=== PATIENT | male | born 1945 | race Caucasian/White ===

== ENCOUNTER 2023-03-14 05:29 | Emergency (ER) | payer MEDICARE ==
--- NOTE | 2023-03-14 05:48 | ERPHSYRPT ---
- History of Present Illness Time Seen by Provider: 03/14/23 05:48 Source: patient Exam Limitations: no limitations Physician History: 77-year-old male presents emergency room from the shelter with a 1 day history of worsening shortness of breath. Patient reports he developed a cough with minimal sputum production yesterday and felt very short of breath. He wears 3 L of oxygen via nasal cannula at baseline due to COPD, but required up to 5 L nasal cannula yesterday to maintain oxygen saturations. Patient denies any fevers but he is very diaphoretic. He does not feel like he is wheezing and his breathing treatments have not been helping, he just feels it is very difficult to get his breath. Patient has a history of a blood clot in his right leg, he is unsure when this was, but he says he is on Eliquis 5 mg twice a day. Patient also has bilateral lower extremity cellulitis that is bandaged to the level of the knee bilaterally has required several debridements. Patient is very sedentary. He denies any unilateral leg swelling at this time. Patient does live in a shelter so is exposed to sick contacts regularly. He had not been sick recently. Patient also reported chest pain underneath his right breast without radiation. Pain is described as a pressure. He has a history of hypertension, hyperlipidemia and diabetes. He denies any prior history of CAD. Timing/Duration: yesterday Cough Quality/Degree: moderate, productive cough, sputum Possible Cause: occasional episodes Modifying Factors: Improves With: oxygen. Worsens With: activity, coughing, exertion Associated Symptoms: chills, chest pain/soreness, cough, shortness of breath, No fever, No dizziness, No earache, No headache, No muscle aches, No nasal congestion, No sinus infection, No sore throat, No wheezing Allergies/Adverse Reactions: Beta-Blockers (Beta-Adrenergic Bloc Allergy (Unknown, Verified 03/14/23 05:53) pollen extracts Allergy (Unknown, Verified 03/14/23 05:53) Home Medications: Acetaminophen 325 mg [Tylenol 325 mg] 650 mg PO Q4H PRN PRN 03/14/23 [His tory] Apixaban [Eliquis] 5 mg PO BID 03/14/23 [History] Atorvastatin Calcium 20 mg PO HS 03/14/23 [History] Bisacodyl 10 mg [Dulcolax 10 MG SUPP] 10 mg RC DAILY 03/14/23 [History] Cetirizine HCl [Zyrtec] 10 mg PO DAILY 03/14/23 [History] Ferrous Sulfate 325 mg [Feosol 325 mg] 325 mg PO BID 03/14/23 [History] Fluticasone Propion/Salmeterol [Fluticasone-Salmeterol 250-50] 2 puff IH BIDRT 03/14/23 [History] Furosemide 40 mg [Lasix 40 MG] 40 mg PO DAILY 03/14/23 [History] Hydrocodone/Acetaminophen [Hydrocodone-Acetamin 10-325 mg] 1 each PO Q6HPRN PRN 03/14/23 [History] Hydrophilic Ointment [Dermafix] 113 gm TP BID 03/14/23 [History] Insulin Aspart [Novolog] 100 unit SQ ACHS PRN 03/14/23 [History] Ipratropium [place] 0.2 mg IN BID 03/14/23 [History] Ipratropium/Albuterol Sulfate [Iprat-Albut 0.5-3(2.5) mg/3 ml] 3 ml IH Q6HPRN PRN 03/14/23 [History] Ipratropium/Albuterol Sulfate [Iprat-Albut 0.5-3(2.5) mg/3 ml] 3 ml IH Q6HPRN PRN 03/14/23 [History] Levothyroxine Sodium 100 Mcg [Synthroid 100 Mcg] 200 mcg PO DAILY 03/14/23 [History] Magnesium Hydroxide 30 ml [Milk of Magnesia 30 ml] 30 ml PO DAILY PRN 03/14/23 [History] Nitroglycerin 0.4 mg Tablet [Nitrostat 0.4 MG Tablet] 0.4 mg SL UD PRN 03/14/23 [History] Nystatin Powder 15 gm [Nystop Powder 15 gm] 15 gm TP TID 03/14/23 [History] PANTOPRAZOLE 40 mg Tablet [Protonix 40MG Tablet] 40 mg PO BID 03/14/23 [History] Polyethylene Glycol 3350 [Miralax] 17 gm PO DAILY PRN 03/14/23 [History] Prednisone 20 mg [Deltasone 20 mg] 20 mg PO DAILY 03/14/23 [History] Sennosides [Senna] 2 tablet PO HS 03/14/23 [History] Sodium Chloride [Saline Nasal [place]] 45 ml NS Q8H PRN PRN 03/14/23 [History] Sodium Hypochlorite [[place]akin's] 473 ml MC DAILY 03/14/23 [History] Sodium Phosphate,Dent-Dibasic [Fleet Enema] 133 ml RC DAILY PRN 03/14/23 [History] Spironolactone 25 mg [Aldactone 25 MG] 25 mg PO DAILY 03/14/23 [History] - Review of Systems Constitutional: Chills, Fatigue, No Fever Eyes: No Symptoms Ears, Nose, & Throat: No Symptoms Respiratory: Cough, Dyspnea, No Wheezing Cardiac: Chest Pain, No Edema Abdominal/Gastrointestinal: No Symptoms Genitourinary Symptoms: No Symptoms Musculoskeletal: No Symptoms Skin: Cellulitis (b/l LE) Neurological: No Symptoms Psychological: No Symptoms Endocrine: No Symptoms Hematologic/Lymphatic: Blood Clots (right leg) - Nursing Vital Signs Nursing Vital Signs: Initial Vital Signs Temperature 96.7 F 03/14/23 05:34 Pulse Rate 118 H 03/14/23 05:34 Respiratory Rate 22 03/14/23 05:34 Blood Pressure 102/66 03/14/23 05:34 O2 Sat by Pulse Oximetry 99 03/14/23 05:34 Pain Scale Pain Intensity 0 - Physical Exam General Appearance: moderate distress, obese Eye Exam: eyes nml inspection Ears, Nose, Throat Exam: normal ENT inspection, TMs normal, pharynx normal, moist mucous membranes Neck Exam: normal inspection, non-tender, supple, full range of motion Respiratory Exam: airway intact, diminished breath sounds, prolonged expirations, rhonchi, other (labored breathing, increased O2 requirment from 3 to 5L NC), No accessory muscle use Cardiovascular Exam: tachycardia, irregular, capillary refill <2 sec, No edema Gastrointestinal/Abdomen Exam: soft, normal bowel sounds, No tenderness, No distention, No guarding, No rebound Extremity Exam: tenderness, other (bandages from toes to just below knee), No swelling Neurologic Exam: alert, oriented x 3, cooperative Skin Exam: warm, diaphoresis, pale, No rash SpO2 Interpretation: hypoxic, ABG ordered SpO2: 99 O2 Delivery: Nasal Cannula (5L) - Course Nursing assessment & vital signs reviewed: Yes EKG Interpreted by Me: RATE (133), A-fib, NORMAL AXIS, prolonged QT interval (483), NORMAL ST-T - CT Exams Chest CT Interpretation: Tele-radiologist Report, No PE, Pneumonia Ordered Tests: Medication Summary Discontinued Medications Generic Name Dose Route Start Last Admin Trade Name Freq PRN Reason Stop Dose Admin Albuterol/Ipratropium 3 ml 03/14/23 06:21 03/14/23 06:33 Ipratropium/Albuterol Sulfate 3 Ml Ampul.Neb IH 03/14/23 06:22 3 ml STAT ONE Administration Albuterol/Ipratropium Confirm 03/14/23 06:32 Ipratropium/Albuterol Sulfate 3 Ml Ampul.Neb Administered 03/14/23 06:33 Dose 3 ml IH .STK-MED ONE Albuterol/Ipratropium 3 ml 03/14/23 15:32 03/14/23 15:32 Ipratropium/Albuterol Sulfate 3 Ml Ampul.Neb IH 03/14/23 15:33 3 ml STAT ONE Administration Albuterol/Ipratropium Confirm 03/14/23 15:34 Ipratropium/Albuterol Sulfate 3 Ml Ampul.Neb Administered 03/14/23 15:35 Dose 3 ml IH .STK-MED ONE Aspirin 324 mg 03/14/23 06:24 03/14/23 06:30 Aspirin 81 Mg Tab.Chew PO 03/14/23 06:25 324 mg STAT ONE Administration Methylprednisolone Sodium 0 mg 03/14/23 06:21 03/14/23 07:04 Succinate 125 mg/ Sterile IV 03/14/23 06:22 125 mg Water 2 ml STAT ONE Administration Diltiazem HCl 10 mg 03/14/23 06:40 Diltiazem Hcl Iv 5 Mg/Ml Vial IV 03/14/23 06:41 STAT ONE Diltiazem HCl Confirm 03/14/23 06:58 Diltiazem Hcl Iv 5 Mg/Ml Vial Administered 03/14/23 06:59 Dose 50 mg IV .STK-MED ONE Sodium Chloride 1,000 mls @ 999 mls/hr 03/14/23 06:21 03/14/23 08:25 Sodium Chloride 0.9% 1000 Ml IV 03/14/23 07:21 Infused .Q1H1M STA Infusion Azithromycin 500 mg in 250 mls @ 250 mls/hr 03/14/23 06:21 03/14/23 10:08 Zithromax 500 Mg/ 250 Ml Nacl Premix IV 03/14/23 07:20 Infused STAT STA Infusion Ceftriaxone Sodium/Dextrose 1 g in 50 mls @ 100 mls/hr 03/14/23 06:21 03/14/23 08:04 Rocephin 1 Gm-D5w 50 Ml Bag IV 03/14/23 06:50 Infused STAT STA Infusion Azithromycin Confirm 03/14/23 06:53 Zithromax 500 Mg/ 250 Ml Nacl Premix Administered 03/14/23 06:54 Dose 500 mg in 250 mls @ ud IV .STK-MED ONE Sodium Chloride Confirm 03/14/23 06:53 Sodium Chloride 0.9% 1000 Ml Administered 03/14/23 06:54 Dose 1,000 mls @ ud .ROUTE .STK-MED ONE Ceftriaxone Sodium/Dextrose Confirm 03/14/23 06:53 Rocephin 1 Gm-D5w 50 Ml Bag Administered 03/14/23 06:54 Dose 1 g in 50 mls @ ud IV .STK-MED ONE Magnesium Sulfate/Dextrose 100 mls @ 100 mls/hr 03/14/23 09:00 03/14/23 09:59 Magnesium 1 Gm / 100 Ml D5w IV 03/14/23 10:59 Not Given Q1H TABATHA Magnesium Sulfate/Dextrose 100 mls @ 100 mls/hr 03/14/23 09:00 03/14/23 09:59 Magnesium 1 Gm / 100 Ml D5w IV 03/14/23 10:59 Not Given Q1H TABATHA Magnesium Sulfate/Water 2 gm in 50 mls @ 100 mls/hr 03/14/23 09:50 03/14/23 11:46 Magnesium Sulf 2 G/50 Ml Bag IV 03/15/23 10:19 Infused Q30MIN TABATHA Infusion Sodium Chloride Confirm 03/14/23 10:00 Sodium Chloride 0.9% 1000 Ml Administered 03/14/23 10:01 Dose 1,000 mls @ ud .ROUTE .STK-MED ONE Sodium Chloride 1,000 mls @ 999 mls/hr 03/14/23 10:01 03/14/23 11:56 Sodium Chloride 0.9% 1000 Ml IV 03/14/23 11:01 Infused .Q1H1M STA Infusion Vancomycin HCl 1 gm in 200 mls @ 125 mls/hr 03/14/23 14:05 Vancomycin 1 Gram/200 Ml Bag IV 03/14/23 15:40 STAT ONE Magnesium Sulfate/Water Confirm 03/14/23 09:49 Magnesium Sulf 2 G/50 Ml Bag Administered 03/14/23 09:50 Dose 2 gm in 50 mls @ ud IV .STK-MED ONE Magnesium Sulfate/Water Confirm 03/14/23 11:02 Magnesium Sulf 2 G/50 Ml Bag Administered 03/14/23 11:03 Dose 2 gm in 50 mls @ ud IV .STK-MED ONE Methylprednisolone Sodium Succinate Confirm 03/14/23 06:53 Methylprednis Sod Succ 125 Mg/2 Ml Vial Administered 03/14/23 06:54 Dose 125 mg .ROUTE .STK-MED ONE Nitroglycerin 0.4 mg 03/14/23 06:24 03/14/23 06:31 Nitroglycerin 0.4 Mg (Ed) 0.4 Mg Tab.Subl SL 03/14/23 06:25 Not Given STAT ONE Sterile Water Confirm 03/14/23 06:53 Water For Injection,Sterile 10 Ml Vial Administered 03/14/23 06:54 Dose 10 ml IJ .STK-MED ONE Lab/Rad Data: Laboratory Result Diagrams 03/14/23 07:12 03/14/23 07:12 Laboratory Results 03/14/23 03/14/23 03/14/23 Range/Units 15:11 13:57 10:37 WBC (4.0-10.5) x10^3/uL RBC (4.1-5.6) x10^6/uL Hgb (12.5-18.0) g/dL Hct (42-50) % MCV (78-100) fL MCH (26-32) pg MCHC (32-36) g/dL RDW (11.5-14.0) % Plt Count (150-450) x10^3/uL MPV (7.5-11.0) fL Gran % (36.0-66.0) % Immature Gran % (Auto) (0.00-0.4) % Nucleat RBC Rel Count (0.00-0.1) % Eos # (Auto) (0-0.5) x10^3/uL Immature Gran # (Auto) (0.00-0.03) x10^3u/L Absolute Lymphs (auto) (1.0-4.6) x10^3/uL Absolute Monos (auto) (0.0-1.3) x10^3/uL Absolute Nucleated RBC (0.00-0.01) x10^3u/L Lymphocytes % (24.0-44.0) % Monocytes % (0.0-12.0) % Eosinophils % (0.00-5.0) % Basophils % (0.0-0.4) % Absolute Granulocytes (1.4-6.9) x10^3/uL Basophils # (0-0.4) x10^3/uL PT (9.4-12.5) SECONDS INR (0.8-3.0) APTT (25.1-36.5) SECONDS pO2/FiO2 Ratio % VBG pH (7.32-7.42) VBG pCO2 at Pat Temp (42-55) mm/Hg VBG pO2 at Pat Temp (25-40) mm/Hg VBG HCO3 (22-28) meq/L VBG O2 Sat ([place]) (95-100) VBG Base Excess (-2.0-2.0) VBG Hemoglobin VBG Carboxyhemoglobin (0.0-6.9) % T HGB POC Potassium (3.5-5.1) Sodium (137-145) mmol/L Potassium (3.5-5.1) mmol/L Chloride (98-107) mmol/L Carbon Dioxide (22-30) mmol/L Anion Gap (5-15) MEQ/L BUN (9-20) mg/dL Creatinine (0.66-1.25) mg/dL Estimated GFR ML/MIN Glucose (74-106) mg/dL Lactic Acid (0.4-2.0) Calcium (8.4-10.2) mg/dL Magnesium (1.6-2.3) mg/dL Total Bilirubin (0.2-1.3) mg/dL Direct Bilirubin (0.0-0.4) mg/dL AST (17-59) U/L ALT (0-50) U/L Alkaline Phosphatase (38-126) U/L Troponin I < 0.012 < 0.012 (0.000-0.034) ng/mL NT-Pro-B Natriuret Pep (<300) pg/mL Serum Total Protein (6.3-8.2) g/dL Albumin (3.5-5.0) g/dL Procalcitonin (0.030-0.080) ng/mL TSH 3rd Generation (0.47-4.68) mIU/L Urine Color Dark Yellow (Yellow) Urine Appearance Clear (Clear) Urine pH 5.0 (4.6-8.0) Ur Specific [place] Mark >=1.030 A (1.005-1.030) Urine Protein Trace A (Negative) Urine Glucose (UA) Negative (Negative) mg/dL Urine Ketones Trace A (Negative) Urine Blood Negative (Negative) Urine Nitrite Negative (Negative) Urine Bilirubin Small A (Negative) Urine Urobilinogen 2.0 A (0.2) mg/dL Ur Leukocyte Esterase Negative (Negative) Urine Microscopic RBC 0-2 (0-5) /HPF Urine Microscopic WBC 0-2 (0-5) /HPF Ur Epithelial Cells None Seen (None Seen) /HPF Urine Bacteria None Seen (None Seen) /HPF Urine Culture Reflexed NO (NO) Nasal Screen MRSA (PCR) Influenza Type A Ag (NEGATIVE) Influenza Type B Ag (NEGATIVE) RSV (PCR) (NEGATIVE) SARS-CoV-2 (PCR) (NEGATIVE) Slides for Path Review 03/14/23 03/14/23 03/14/23 Range/Units 09:30 09:16 09:01 WBC (4.0-10.5) x10^3/uL RBC (4.1-5.6) x10^6/uL Hgb (12.5-18.0) g/dL Hct (42-50) % MCV (78-100) fL MCH (26-32) pg MCHC (32-36) g/dL RDW (11.5-14.0) % Plt Count (150-450) x10^3/uL MPV (7.5-11.0) fL Gran % (36.0-66.0) % Immature Gran % (Auto) (0.00-0.4) % Nucleat RBC Rel Count (0.00-0.1) % Eos # (Auto) (0-0.5) x10^3/uL Immature Gran # (Auto) (0.00-0.03) x10^3u/L Absolute Lymphs (auto) (1.0-4.6) x10^3/uL Absolute Monos (auto) (0.0-1.3) x10^3/uL Absolute Nucleated RBC (0.00-0.01) x10^3u/L Lymphocytes % (24.0-44.0) % Monocytes % (0.0-12.0) % Eosinophils % (0.00-5.0) % Basophils % (0.0-0.4) % Absolute Granulocytes (1.4-6.9) x10^3/uL Basophils # (0-0.4) x10^3/uL PT (9.4-12.5) SECONDS INR (0.8-3.0) APTT (25.1-36.5) SECONDS pO2/FiO2 Ratio % VBG pH (7.32-7.42) VBG pCO2 at Pat Temp (42-55) mm/Hg VBG pO2 at Pat Temp (25-40) mm/Hg VBG HCO3 (22-28) meq/L VBG O2 Sat ([place]) (95-100) VBG Base Excess (-2.0-2.0) VBG Hemoglobin VBG Carboxyhemoglobin (0.0-6.9) % T HGB POC Potassium (3.5-5.1) Sodium (137-145) mmol/L Potassium (3.5-5.1) mmol/L Chloride (98-107) mmol/L Carbon Dioxide (22-30) mmol/L Anion Gap (5-15) MEQ/L BUN (9-20) mg/dL Creatinine (0.66-1.25) mg/dL Estimated GFR ML/MIN Glucose (74-106) mg/dL Lactic Acid 1.6 (0.4-2.0) Calcium (8.4-10.2) mg/dL Magnesium (1.6-2.3) mg/dL Total Bilirubin (0.2-1.3) mg/dL Direct Bilirubin 1.9 H (0.0-0.4) mg/dL AST (17-59) U/L ALT (0-50) U/L Alkaline Phosphatase (38-126) U/L Troponin I (0.000-0.034) ng/mL NT-Pro-B Natriuret Pep (<300) pg/mL Serum Total Protein (6.3-8.2) g/dL Albumin (3.5-5.0) g/dL Procalcitonin (0.030-0.080) ng/mL TSH 3rd Generation (0.47-4.68) mIU/L Urine Color (Yellow) Urine Appearance (Clear) Urine pH (4.6-8.0) Ur Specific [place] Mark (1.005-1.030) Urine Protein (Negative) Urine Glucose (UA) (Negative) mg/dL Urine Ketones (Negative) Urine Blood (Negative) Urine Nitrite (Negative) Urine Bilirubin (Negative) Urine Urobilinogen (0.2) mg/dL Ur Leukocyte Esterase (Negative) Urine Microscopic RBC (0-5) /HPF Urine Microscopic WBC (0-5) /HPF Ur Epithelial Cells (None Seen) /HPF Urine Bacteria (None Seen) /HPF Urine Culture Reflexed (NO) Nasal Screen MRSA (PCR) DETECTED Influenza Type A Ag (NEGATIVE) Influenza Type B Ag (NEGATIVE) RSV (PCR) (NEGATIVE) SARS-CoV-2 (PCR) (NEGATIVE) Slides for Path Review 03/14/23 03/14/23 03/14/23 Range/Units 07:18 07:14 07:12 WBC (4.0-10.5) x10^3/uL RBC (4.1-5.6) x10^6/uL Hgb (12.5-18.0) g/dL Hct (42-50) % MCV (78-100) fL MCH (26-32) pg MCHC (32-36) g/dL RDW (11.5-14.0) % Plt Count (150-450) x10^3/uL MPV (7.5-11.0) fL Gran % (36.0-66.0) % Immature Gran % (Auto) (0.00-0.4) % Nucleat RBC Rel Count (0.00-0.1) % Eos # (Auto) (0-0.5) x10^3/uL Immature Gran # (Auto) (0.00-0.03) x10^3u/L Absolute Lymphs (auto) (1.0-4.6) x10^3/uL Absolute Monos (auto) (0.0-1.3) x10^3/uL Absolute Nucleated RBC (0.00-0.01) x10^3u/L Lymphocytes % (24.0-44.0) % Monocytes % (0.0-12.0) % Eosinophils % (0.00-5.0) % Basophils % (0.0-0.4) % Absolute Granulocytes (1.4-6.9) x10^3/uL Basophils # (0-0.4) x10^3/uL PT (9.4-12.5) SECONDS INR (0.8-3.0) APTT (25.1-36.5) SECONDS pO2/FiO2 Ratio 40.0 % VBG pH 7.48 H (7.32-7.42) VBG pCO2 at Pat Temp 38 L (42-55) mm/Hg VBG pO2 at Pat Temp 47 H (25-40) mm/Hg VBG HCO3 28.3 H (22-28) meq/L VBG O2 Sat ([place]) 79.0 L (95-100) VBG Base Excess 4.5 H (-2.0-2.0) VBG Hemoglobin 10.4 VBG Carboxyhemoglobin 4.0 (0.0-6.9) % T HGB POC Potassium 5.5 H (3.5-5.1) Sodium (137-145) mmol/L Potassium (3.5-5.1) mmol/L Chloride (98-107) mmol/L Carbon Dioxide (22-30) mmol/L Anion Gap (5-15) MEQ/L BUN (9-20) mg/dL Creatinine (0.66-1.25) mg/dL Estimated GFR ML/MIN Glucose (74-106) mg/dL Lactic Acid 2.3 H (0.4-2.0) Calcium (8.4-10.2) mg/dL Magnesium (1.6-2.3) mg/dL Total Bilirubin (0.2-1.3) mg/dL Direct Bilirubin (0.0-0.4) mg/dL AST (17-59) U/L ALT (0-50) U/L Alkaline Phosphatase (38-126) U/L Troponin I (0.000-0.034) ng/mL NT-Pro-B Natriuret Pep (<300) pg/mL Serum Total Protein (6.3-8.2) g/dL Albumin (3.5-5.0) g/dL Procalcitonin 0.477 H (0.030-0.080) ng/mL TSH 3rd Generation (0.47-4.68) mIU/L Urine Color (Yellow) Urine Appearance (Clear) Urine pH (4.6-8.0) Ur Specific [place] Mark (1.005-1.030) Urine Protein (Negative) Urine Glucose (UA) (Negative) mg/dL Urine Ketones (Negative) Urine Blood (Negative) Urine Nitrite (Negative) Urine Bilirubin (Negative) Urine Urobilinogen (0.2) mg/dL Ur Leukocyte Esterase (Negative) Urine Microscopic RBC (0-5) /HPF Urine Microscopic WBC (0-5) /HPF Ur Epithelial Cells (None Seen) /HPF Urine Bacteria (None Seen) /HPF Urine Culture Reflexed (NO) Nasal Screen MRSA (PCR) Influenza Type A Ag (NEGATIVE) Influenza Type B Ag (NEGATIVE) RSV (PCR) (NEGATIVE) SARS-CoV-2 (PCR) (NEGATIVE) Slides for Path Review 03/14/23 03/14/23 03/14/23 Range/Units 07:12 07:12 07:12 WBC (4.0-10.5) x10^3/uL RBC (4.1-5.6) x10^6/uL Hgb (12.5-18.0) g/dL Hct (42-50) % MCV (78-100) fL MCH (26-32) pg MCHC (32-36) g/dL RDW (11.5-14.0) % Plt Count (150-450) x10^3/uL MPV (7.5-11.0) fL Gran % (36.0-66.0) % Immature Gran % (Auto) (0.00-0.4) % Nucleat RBC Rel Count (0.00-0.1) % Eos # (Auto) (0-0.5) x10^3/uL Immature Gran # (Auto) (0.00-0.03) x10^3u/L Absolute Lymphs (auto) (1.0-4.6) x10^3/uL Absolute Monos (auto) (0.0-1.3) x10^3/uL Absolute Nucleated RBC (0.00-0.01) x10^3u/L Lymphocytes % (24.0-44.0) % Monocytes % (0.0-12.0) % Eosinophils % (0.00-5.0) % Basophils % (0.0-0.4) % Absolute Granulocytes (1.4-6.9) x10^3/uL Basophils # (0-0.4) x10^3/uL PT 12.4 (9.4-12.5) SECONDS INR 1.15 (0.8-3.0) APTT 34.1 (25.1-36.5) SECONDS pO2/FiO2 Ratio % VBG pH (7.32-7.42) VBG pCO2 at Pat Temp (42-55) mm/Hg VBG pO2 at Pat Temp (25-40) mm/Hg VBG HCO3 (22-28) meq/L VBG O2 Sat ([place]) (95-100) VBG Base Excess (-2.0-2.0) VBG Hemoglobin VBG Carboxyhemoglobin (0.0-6.9) % T HGB POC Potassium (3.5-5.1) Sodium 135 L (137-145) mmol/L Potassium 3.6 (3.5-5.1) mmol/L Chloride 96 L (98-107) mmol/L Carbon Dioxide 27 (22-30) mmol/L Anion Gap 14.8 (5-15) MEQ/L BUN 26 H (9-20) mg/dL Creatinine 1.01 (0.66-1.25) mg/dL Estimated GFR > 60.0 ML/MIN Glucose 136 H (74-106) mg/dL Lactic Acid (0.4-2.0) Calcium 7.3 L (8.4-10.2) mg/dL Magnesium 0.7 L* (1.6-2.3) mg/dL Total Bilirubin 2.90 H (0.2-1.3) mg/dL Direct Bilirubin (0.0-0.4) mg/dL AST 62 H (17-59) U/L ALT 47 (0-50) U/L Alkaline Phosphatase 391 H (38-126) U/L Troponin I < 0.012 (0.000-0.034) ng/mL NT-Pro-B Natriuret Pep 1480 (<300) pg/mL Serum Total Protein 6.5 (6.3-8.2) g/dL Albumin 3.1 L (3.5-5.0) g/dL Procalcitonin (0.030-0.080) ng/mL TSH 3rd Generation 3.930 (0.47-4.68) mIU/L Urine Color (Yellow) Urine Appearance (Clear) Urine pH (4.6-8.0) Ur Specific [place] Mark (1.005-1.030) Urine Protein (Negative) Urine Glucose (UA) (Negative) mg/dL Urine Ketones (Negative) Urine Blood (Negative) Urine Nitrite (Negative) Urine Bilirubin (Negative) Urine Urobilinogen (0.2) mg/dL Ur Leukocyte Esterase (Negative) Urine Microscopic RBC (0-5) /HPF Urine Microscopic WBC (0-5) /HPF Ur Epithelial Cells (None Seen) /HPF Urine Bacteria (None Seen) /HPF Urine Culture Reflexed (NO) Nasal Screen MRSA (PCR) Influenza Type A Ag NEGATIVE (NEGATIVE) Influenza Type B Ag NEGATIVE (NEGATIVE) RSV (PCR) NEGATIVE (NEGATIVE) SARS-CoV-2 (PCR) NEGATIVE (NEGATIVE) Slides for Path Review 03/14/23 Range/Units 07:12 WBC 12.5 H (4.0-10.5) x10^3/uL RBC 4.10 (4.1-5.6) x10^6/uL Hgb 10.0 L (12.5-18.0) g/dL Hct 34.7 L (42-50) % MCV 84.6 (78-100) fL MCH 24.4 L (26-32) pg MCHC 28.8 L (32-36) g/dL RDW 23.3 H (11.5-14.0) % Plt Count 347 (150-450) x10^3/uL MPV 9.3 (7.5-11.0) fL Gran % 80.0 H (36.0-66.0) % Immature Gran % (Auto) 0.4 (0.00-0.4) % Nucleat RBC Rel Count 0.0 (0.00-0.1) % Eos # (Auto) 0.21 (0-0.5) x10^3/uL Immature Gran # (Auto) 0.05 H (0.00-0.03) x10^3u/L Absolute Lymphs (auto) 1.05 (1.0-4.6) x10^3/uL Absolute Monos (auto) 1.14 (0.0-1.3) x10^3/uL Absolute Nucleated RBC 0.00 (0.00-0.01) x10^3u/L Lymphocytes % 8.4 L (24.0-44.0) % Monocytes % 9.1 (0.0-12.0) % Eosinophils % 1.7 (0.00-5.0) % Basophils % 0.4 (0.0-0.4) % Absolute Granulocytes 9.97 H (1.4-6.9) x10^3/uL Basophils # 0.05 (0-0.4) x10^3/uL PT (9.4-12.5) SECONDS INR (0.8-3.0) APTT (25.1-36.5) SECONDS pO2/FiO2 Ratio % VBG pH (7.32-7.42) VBG pCO2 at Pat Temp (42-55) mm/Hg VBG pO2 at Pat Temp (25-40) mm/Hg VBG HCO3 (22-28) meq/L VBG O2 Sat ([place]) (95-100) VBG Base Excess (-2.0-2.0) VBG Hemoglobin VBG Carboxyhemoglobin (0.0-6.9) % T HGB POC Potassium (3.5-5.1) Sodium (137-145) mmol/L Potassium (3.5-5.1) mmol/L Chloride (98-107) mmol/L Carbon Dioxide (22-30) mmol/L Anion Gap (5-15) MEQ/L BUN (9-20) mg/dL Creatinine (0.66-1.25) mg/dL Estimated GFR ML/MIN Glucose (74-106) mg/dL Lactic Acid (0.4-2.0) Calcium (8.4-10.2) mg/dL Magnesium (1.6-2.3) mg/dL Total Bilirubin (0.2-1.3) mg/dL Direct Bilirubin (0.0-0.4) mg/dL AST (17-59) U/L ALT (0-50) U/L Alkaline Phosphatase (38-126) U/L Troponin I (0.000-0.034) ng/mL NT-Pro-B Natriuret Pep (<300) pg/mL Serum Total Protein (6.3-8.2) g/dL Albumin (3.5-5.0) g/dL Procalcitonin (0.030-0.080) ng/mL TSH 3rd Generation (0.47-4.68) mIU/L Urine Color (Yellow) Urine Appearance (Clear) Urine pH (4.6-8.0) Ur Specific Warriors Mark (1.005-1.030) Urine Protein (Negative) Urine Glucose (UA) (Negative) mg/dL Urine Ketones (Negative) Urine Blood (Negative) Urine Nitrite (Negative) Urine Bilirubin (Negative) Urine Urobilinogen (0.2) mg/dL Ur Leukocyte Esterase (Negative) Urine Microscopic RBC (0-5) /HPF Urine Microscopic WBC (0-5) /HPF Ur Epithelial Cells (None Seen) /HPF Urine Bacteria (None Seen) /HPF Urine Culture Reflexed (NO) Nasal Screen MRSA (PCR) Influenza Type A Ag (NEGATIVE) Influenza Type B Ag (NEGATIVE) RSV (PCR) (NEGATIVE) SARS-CoV-2 (PCR) (NEGATIVE) Slides for Path Review YES - Progress Progress: improved Air Movement: fair Progress Note: EKG showed atrial fibrillation with a heart rate of 133 bpm. Patient is anticoagulated with Eliquis 5 mg twice a day. Cardizem 10 mg IV push was ordered to help lower his heart rate, but prior to giving the medication his blood pressure decreased to a map ranging from 65-70 so decision was made to hol d medication at this time. His heart rate is largely been under 120 since his blood pressure dropped. Since he has received his IV fluids his map is now in the mid to upper 70s. He is saturating at 100% on the 5 L via nasal cannula at this time. CBC showed a white count of 12.5, hemoglobin of 10 Venous blood gas showed a pH of 7.48 Lactate was elevated at 2.3 Initial vial was hemolyzed so patient has to be redrawn for the remaining labs. 03/14/23 08:55 Received a call from lab that patient's magnesium was 0.7. We will give 4 g of magnesium sulfate at this time. Sodium 135, potassium 3.6, total bilirubin 2.9 we will obtain a direct, AST elevated at 62, ALT 47, alk phos 391, troponin negative x1, BNP 1480, calcium 8 03/14/23 11:08 CTA chest showed no evidence of PE but did show a right lower lobe pneumonia as well as a 7 mm nodule in the right upper lobe with recommended follow-up CT scan in 6 to 12 months. Blood Culture(s) Obtained: Yes Antibiotics given: Yes Medical Desision Making - Discussion of managment Care discussed with:: hospitalist Reviewed:: Test results Agreed on:: Treatment plan Will see patient: in hospital - Diagnostic Testing Diagnostic test were ordered, analyzed, and reviewed by me: Yes Radiological Interpretation: Interpreted by me, Reviewed by me, Teleradiologist Report - Risk of complications The pt has a mod risk of morbidity or mortality based on: Need for prescription drug management The pt has a high risk of morbidity or mortality based on: Decision regarding hospitilization or escalation of hosp level of care - Departure Departure Disposition: Transfer ([facility]) Clinical Impression: Atrial fibrillation with RVR, Sepsis due to pneumonia, RLL pneumonia, Anemia, Hypomagnesemia, Hyperbilirubinemia, Direct hyperbilirubinemia, Elevated AST (SGOT), Elevated brain natriuretic peptide (BNP) level, COPD (chronic obstructive pulmonary disease), Elevated alkaline phosphatase level, Incidental lung nodule, > 3mm and < 8mm, Hypokalemia, Bilateral lower leg cellulitis, MRSA carrier Condition: Fair Critical Care Time: Yes Critical Care Time(excluding separately billable procedures): Critical 75-104 mins Referrals: DU SINGH MD [Primary Care Provider] - Follow up/PCP as directed Instructions: Chronic Obstructive Pulmonary Disease, Pneumonia, Adult (DC)
[2023-03-14] MEDS ORDERED: solu-MEDROL 125 MG, Sterile H2O 10 ml 2 ML IV ONE ×2 (06:21)
[2023-03-14] MEDS ORDERED: ROCEPHIN 1 Gm-D5w 50 ml Bag** 1 G/50 ML IVPB IV STA (06:21)
[2023-03-14] MEDS ORDERED: DUONEB 0.5-3 MG/3 ml Neb IH ONE ×4 (06:21→15:34)
[2023-03-14] MEDS ORDERED: Sodium Chloride 0.9% 1000 ML 1,000 ML IV STA ×2 (06:21→10:01)
[2023-03-14] MEDS ORDERED: Zithromax 500 MG/ 250 ML NaCl Premix 500 MG/250 ML IVPB IV STA (06:21)
[2023-03-14] MEDS ORDERED: BABY ASPIRIN 81 MG CHEW PO ONE (06:24)
[2023-03-14] MEDS: Nitrostat 0.4 MG (ED) SL ONE ×2 (06:30→06:31)
[2023-03-14] MEDS ORDERED: Cardizem IV 50 MG/10 ML IV ONE ×2 (06:40→06:58)
[2023-03-14] MEDS ORDERED: Sterile H2O 10 ml IJ ONE (06:53)
[2023-03-14] MEDS ORDERED: Zithromax 500 MG/ 250 ML NaCl Premix 500 MG/250 ML IVPB IV ONE (06:53)
[2023-03-14] MEDS ORDERED: Sodium Chloride 0.9% 1000 ML 1,000 ML ONE ×2 (06:53→10:00)
[2023-03-14] MEDS ORDERED: solu-MEDROL ONE (06:53)
[2023-03-14] MEDS ORDERED: ROCEPHIN 1 Gm-D5w 50 ml Bag** 1 G/50 ML IVPB IV ONE (06:53)
[2023-03-14 07:16] LABS: VBG BASE EXCESS 4.5 (-2.0-2.0); VBG HCO3- 28.3 meq/L (22-28); VBG HEMOGLOBIN 10.4; VBG POTASSIUM 5.5 (3.5-5.1); VBG pH 7.48 (7.32-7.42)
[2023-03-14 07:22] LABS: Absolute Neutrophil Ct (ANC) 9.97 x10^3/uL (1.4-6.9); BASOPHIL % 0.4 % (0.0-0.4); Basophil (Absolute #) 0.05 x10^3/uL (0-0.4); Eosinophil % 1.7 % (0.00-5.0); Eosinophil (Absolute #) 0.21 x10^3/uL (0-0.5); Hematocrit 34.7 % (42-50); IMMATURE GRAN # 0.05 x10^3u/L (0.00-0.03); IMMATURE GRAN % 0.4 % (0.00-0.4); Lymphocyte (Absolute #) 1.05 x10^3/uL (1.0-4.6); Lymphocytes % 8.4 % (24.0-44.0); Mean Cell Volume 84.6 fL (78-100); Mean Corpuscular Hemoglobin 24.4 pg (26-32); Mean Corpuscular Hgb Concent. 28.8 g/dL (32-36); Mean Platelet Volume 9.3 fL (7.5-11.0); Monocyte (Absolute #) 1.14 x10^3/uL (0.0-1.3); Monocytes % 9.1 % (0.0-12.0); Platelet Count 347 x10^3/uL (150-450); Red Cell Distribution Width 23.3 % (11.5-14.0); White Blood Count 12.5 x10^3/uL (4.0-10.5)
[2023-03-14 08:03] LABS: INFLUENZA A NEGATIVE (NEGATIVE); INFLUENZA B NEGATIVE (NEGATIVE); INR 1.15 (0.8-3.0); PROTIME 12.4 SECONDS (9.4-12.5); PTT 34.1 SECONDS (25.1-36.5); RESPIRATORY SYNCTIAL VIRUS NEGATIVE (NEGATIVE); SARS-CoV-2 Xpert Express NEGATIVE (NEGATIVE)
[2023-03-14 08:38] LABS: ALBUMIN 3.1 g/dL (3.5-5.0); ALKALINE PHOSPHATASE 391 U/L (38-126); ANION GAP 14.8 MEQ/L (5-15); BLOOD UREA NITROGEN 26 mg/dL (9-20); CHLORIDE 96 mmol/L (98-107); Calcium 7.3 mg/dL (8.4-10.2); Carbon Dioxide 27 mmol/L (22-30); Creatinine 1 1.01 mg/dL (0.66-1.25); EST GLOMERULAR FILTRATION RATE > 60.0 ML/MIN; Glucose 136 mg/dL (74-106); NT PRO BNPII 1480 pg/mL (<300); Potassium 3.6 mmol/L (3.5-5.1); SGOT/AST 62 U/L (17-59); SGPT/ALT 47 U/L (0-50); SODIUM 135 mmol/L (137-145); TROPONIN < 0.012 ng/mL (0.000-0.034); Total Protein 6.5 g/dL (6.3-8.2)
[2023-03-14 08:52] LABS: MAGNESIUM 0.7 mg/dL (1.6-2.3)
[2023-03-14] MEDS ORDERED: Magnesium 1 Gm / 100 Ml D5W*** 100 ML IV SCH ×2 (09:00)
[2023-03-14] MEDS ORDERED: MAGNESIUM SULF 2 G/50 ML BAG 2 GM/50 ML PIGGYBACK IV ONE ×2 (09:49→11:02)
[2023-03-14] MEDS: MAGNESIUM SULF 2 G/50 ML BAG 2 GM/50 ML PIGGYBACK IV SCH ×2 (09:58→11:03)
--- NOTE | 2023-03-14 11:03 | XRAY ---
CLINICAL HISTORY:chest pain, hypoxia, hx dvt COMPARISON:None; TECHNIQUES:Pulmonary angiogram was performed to visualize the pulmonary arteries and its branches after high bolus injection of 100cc isovue 370 intravenous contrast. Multiple images acquired al. Total DLP is 1552mgy-cm and CTDL is 79.1; FINDINGS: Compromised study as the pulmonary embolism protocol is not properly performed likely due to patient condition. Right and left main pulmonary arteries, as well as segmental branches, appear of normal caliber without evidence of any filling defect. No definite evidence of pulmonary arterial thrombosis identified. Using appropriate lung window settings, ground glass haze with interlobular septal thickening and fibro bronchiectasis changes noted in the posterior segment of the right lower lobe. Minimal right-sided pleural thickening noted. Few atelectatic bands also noted in left lower lobe. Few soft tissue pulmonary nodules noted in the right upper lobe , one of them measures 7 mm seen in the anterior segment. No evidence of consolidation or cavitation noted. No honeycombing, or abnormal air trapping is noted. The major airway appears patent. No pleural effusion seen bilaterally. On appropriate mediastinal window settings, subcentimeter mediastinal and hilar lymph nodes are seen Included sections through the upper abdomen showed no gross abnormality in organs. On appropriate bone window settings, Reduced bone density along with significant degenerative changes noted in the dorsal spine.There is possible suggestion of hemangioma at T12 vertebra. IMPRESSION: 1. No evidence of acute or chronic pulmonary arterial thromboembolic disease. 2. Mild pulmonary infection noted in the right lung, clinical correlation and follow-up is advised. 3. Few soft tissue pulmonary nodules noted in the right upper lobe , one of them measures 7 mm seen in the anterior segment, Would recommend 6-[address] follow-up according to Fleischner Society recommendations. Electronically Signed by: Isai Nowak MD. (03/14/2023 09:54:36 [employer])
[2023-03-14 12:36] LABS: Slide Review 1 YES
[2023-03-14] MEDS ORDERED: VANCOMYCIN 1 GRAM/200 ML BAG 1 GM/200 ML PIGGYBACK IV ONE (14:05)
[2023-03-14 14:52] VITALS: O2SAT 99
[2023-03-14 15:49] LABS: Appearance Clear (Clear); Bacteria None Seen /HPF (None Seen); Bilirubin Small (Negative); Blood Negative (Negative); Epithelial Cells None Seen /HPF (None Seen); Glucose, Urine Negative (Negative); Ketones Trace (Negative); Leukocyte Esterase Negative (Negative); Nitrite Negative (Negative); Protein,Urine Dip Trace (Negative); RBC 0-2 /HPF (0-5); Specific Gravity >=1.030 (1.005-1.030); WBC 0-2 /HPF (0-5)
[2023-03-14 16:00] LABS: ADD URINE CULTURE? NO (NO)
[2023-03-14 16:35] VITALS: BP 104/65; PULSE 105
== END 2023-03-14 17:15 | disposition short-term general hospital (02) ==
LOC: ED 05:29
DX: I48.20 Chronic atrial fibrillation, unspecified (principal); A41.9 Sepsis, unspecified organism; J18.9 Pneumonia, unspecified organism; D64.9 Anemia, unspecified; E83.42 Hypomagnesemia; E80.6 Other disorders of bilirubin metabolism; R74.01 Elevation of levels of liver transaminase levels; R79.89 Other specified abnormal findings of blood chemistry; J44.9 Chronic obstructive pulmonary disease, unspecified; R74.8 Abnormal levels of other serum enzymes; R91.1 Solitary pulmonary nodule; E87.6 Hypokalemia; L03.116 Cellulitis of left lower limb; L03.115 Cellulitis of right lower limb; Z22.322 Carrier or suspected carrier of Methicillin resistant Staphylococcus aureus; Z79.01 Long term (current) use of anticoagulants; R07.9 Chest pain, unspecified; I10 Essential (primary) hypertension; E78.5 Hyperlipidemia, unspecified; E11.9 Type 2 diabetes mellitus without complications; Z79.4 Long term (current) use of insulin; Z20.828 Contact with and (suspected) exposure to other viral communicable diseases
CPT/HCPCS: 0241U; 36000; 36415; 71260; 80053; 81001; 82248; 82805; 83605; 83735; 83880; 84145; 84443; 84484; 85025; 85610; 85730; 87040; 87070; 87641; 93005; 93041; 94640; 94760; 96360; 96361; 96365; 96367; 96374; 99285; 99291; 99292; 87077; 87186; J0456; J0696; J2930; A9270-GY; J3475